=== PATIENT | female | born 1950 ===

== ENCOUNTER 2021-01-05 13:13 | Inpatient (IN) | payer OTHER ==
--- OUTSIDE RECORDS SUMMARY | 2021-01-05 13:16 | XMS REPORT | Continuity of Care Document ---
:1950 Author Organization [facility] t Address [address] [place] [address] Care Team Providers Name Role Phone Nurse, Urgent Care Attending Clinician Unavailable Johann ROMAN Attending Clinician Provider, Urgent Care Attending Clinician Unavailable Miesha OT, L Attending Clinician Unavailable Doctor Unassigned, Name Attending Clinician Unavailable LYSSA Attending Clinician Unavailable Payers Payer Name Policy Type Policy Number Effective Date Expiration Date S ource Problems Condition Condition Condition Status Onset Resolution Last Treating Co mments Source Name Details Category Date Date Treatment Clinician Date Avulsion Avulsion Problem Active Unive rs fracture fracture ity of of medial [place] medial [place] malleolus malleolus Phys ici of right of right ans tibia, tibia, closed, closed, initial initial encounter encounter Allergies, Adverse Reactions, Alerts Allergy Allergy Status Severity Reaction(s) Onset Inactive Treating Comm ents Source Name Type Date Date Clinician No Known DA Active U 2019-0 [facility] 2[facility] [place] No Known DA Active U 2018-0 [facility]ie 03-06 [place] [facility] 00[facility] Medications This patient has no known medications. Procedures This patient has no known procedures. Encounters Start End Encounter Admission Attending Care Care Encounter Source Date/Time Date/Time Type Type Clinicians Facility Department ID 2021-01-04 2021-01-04 Telephone Nurse, Hugh [facility] [id number] 00:00:00 00:00:00 Urgent Care Health [id number] Surgical [id number] Specialti [phone] es 370 Shiv 2021-01-04 2021-01-04 Telephone Johann, [facility] [id number] 00:00:00 00:00:00 [place] [id number] [place] [id number] Professio [phone] formerly [facility] [address] [facility] 2021-01-01 2021-01-01 Urgent Provider, [facility] [id number] 12:24:01 13:51:32 Care [facility] Urgent Health [id number] Care [place] [id number] Professio [phone] nal [address] 2020-12-27 2020-12-27 Ancillary Perdomo-Radames [facility] [id number] 09:02:19 10:49:26 Visit Amber kaur [place] [id number] [place] [id number] Professio [phone] formerly [facility] [address] [facility] 2020-12-27 2020-12-27 Refill Johann [facility] [id number] 00:00:00 00:00:00 [place] [id number] [place] [id number] Professio [phone] formerly [facility] [address] [facility] 2020-12-26 2020-12-26 Orders Doctor SAMUEL [id number] 00:00:00 00:00:00 Only Unassigned, HESHAM [id number] [facility] 4.2.7.2.686 [id number] [id number] 2020-08-14 2020-08-14 AppointSARAY Ravi [id number] [facility] 14:00:00 14:00:00 t; VIKRAM OMALLEY PA ity of [facility] ans 2020-07-17 2020-07-17 [facility] [id number] [facility] 14:00:00 14:00:00 t; VIKRAM OMALLEY PA Trauma ity of [facility] 2020-06-19 2020-06-19 SARAY Travis UTP [id number] Univers 14:00:00 14:00:00 t; VIKRAM OMALLEY PA ity of [facility] ans Results Test Description Test Time Test Comments Results Result Comments Source HGB HCT 2018-09-09 06:17:00 Test Item Value Reference Range Interpretation Comme nts HEMOGLOBIN (test code = HGB) 8.5 g/dL 12-16 L HEMATOCRIT (test code = HCT) 26.5 % 37-47 L - XR KNEE 1 OR 2 V [id number] 10:41:00 Patient Name: KAYLA SEGAL Unit No: [id number] EXAMS: CPT CODE: [id number] XR KNEE 1 OR 2 [place] [address] AP AND LATERAL VIEW OF THE RIGHT KNEE COMMENT:Patient is status post total right knee arthroplasty. The prosthesis appears to be in good pos ition. at 1041 Reported and signed by: Mason Vásquez MD CC: Keyona Andujar MD Technologist: JEANNIE EVANS, RT(R)Transcribed D/ (1041) t.TDER.GVG [facility] NAME: KAYLA SEGAL [address] [facility] [address] PHYS: PATAN.06 -Keyona Andujar : 1950 AGE: 68 SEX: F [place], [place] [address] LOC: Y.319 A PHONE #: [phone] EXAM DATE: 09/07/2018 STATUS: ADM IN FAX #: [phone] RAD #: D/C DT PAGE 1 Signed Report Patient Name: KAYLA SEGAL Unit No: [id number] EXAMS: CPT CODE: [id number] XR KNEE 1 OR 2 [place] [id number] <Continued> Orig Print D/T: S: 09/08/2018 (1044) [facility] NAME: KAYLA SEGAL [address] PHYS: [id number] - Keyona Andujar : 1950 AGE: 68 SEX: F [place], [place] [address] LOC: Y.319 A PHONE #: [phone] EXAM DATE: 09/07/2018 STATUS: ADM IN FAX #: [phone] RAD #: D/C DT PAGE 2 Signed ReportBASI METABOLIC [id number] 06:27:00 Test Item Value Reference Range Interpretation Comments SODIUM (test code = 143 mmol/L 136-145 N NA) POTASSIUM (test code = 4.2 mmol/L 3.5-5.1 N K) CHLORIDE (test code = 105.0 mmol/L 98-107 N CL) CARBON DIOXIDE (test 28.8 mmol/L 21-32 N code = CO2) GLUCOSE (test code = 106 mg/dL 70-110 N GLU) BLOOD UREA NITROGEN 21 mg/dL 7-18 H (test code = BUN) GLOMERULAR FILTRATION 83.8 >60 Unit o f measure: RATE (test code = GFR) mL/mi n/1.73 [id number] Range:Healthy Adults >90 mL/min/1.73 m2 For Chronic Kidney Disease: St age II Mild Decrease in GFR 60-90 St age III Moderate Decrease in GFR 30-59 Stage IV Severe Decre ase in GFR 15- 29 Stage V Kidney Failure <15 CREATININE (test code 0.82 mg/dL 0.55-1.30 N = CREAT) CALCIUM (test code = 8.8 mg/dL 8.2-10.1 N CA) GLYCOSYLATED HEMOGLOBIN (HA1C)2018-09-01 18:52:00 Test Item Value Reference Range Interpretation Comments GLYCOSYLATED 5.3 % 4.8-5.9 N Any condition t hat shortens HEMOGLOBIN (HA1C) erythocyte survival or (test code = GLYHGB) decreas esmean erythrocyte age (e.g., contreras very from acute blood los s,hemolytic anemai) will fa lsely lower HGBA1c resultsr egardless of the method used . HGBA1c results frompat ients with HbSS, HbCC and HbSc must be interpreted wit hcaution given the patho logical processes, incl uding anemia,increase d red cell turnover, trans fusion requirements, t hatadversely impact HGBA1c a s a marker of long-term glycemiccontrol . Alternative for ms of testing such as fructosaminesho uld be considered for these patients.DONE A T: [facility] [address] [place] [address] PROTHROMBIN [id number] 15:22:00 Test Item Value Reference Range Interpretation Comments PROTHROMBIN TIME 11.6 secs 10.1-12.5 N PATIENT (test code = PTP) INTERNATIONAL NORMAL 1.03 <2.0 RECOMME NDED THERAPEUTIC RATIO (test code = RANGE FOR ORAL INR) ANTICOAGULANTTR EATMENT: CONDI TION INRProphylaxis of venous thrombos is in 2.0 - 3.0 high-risk medic al or surgical patientsTreatme nt of venous thrombos is 2.0 - 3.0Prevention o f embolism 2.0 - 3.0Prevention o f recurrent embol ism, or 3.0 - 4. 5 patients with mechanical pros thetic intravascular v borrero IS PATIENT ON ANTICOAGULANTS ? YLIST ANTICOAGULANT/ANTI PLT MEDICATION : AspirinHas Lab been notified if Patient is on Heparin Drip? NOIf Yes, order CBC, OCCULT BLOOD, PT every other day NTHROMBOPLASTIN TIME [id number] 15:22:00 Test Item Value Reference Range Interpretation Comments PTT ACTIVATED (test code = APTT) 31.1 secs 24.9-37.0 N IS PATIENT ON ANTICOAGULANTS ? YLIST ANTICOAGULANT/ANTI PLT MEDICATION : AspirinHas Lab been notified if Patient is on Heparin Drip? NOIf Yes, order CBC, OCCULT BLOOD, PT every other day NCOMPREHENSIVE METABOLIC [id number] 15:03:00 Test Item Value Reference Range Interpretation Comments SODIUM (test code = 141 mmol/L 136-145 N NA) POTASSIUM (test code = 4.2 mmol/L 3.5-5.1 N K) CHLORIDE (test code = 102.0 mmol/L 98-107 N CL) CARBON DIOXIDE (test 32.7 mmol/L 21-32 H code = CO2) GLUCOSE (test code = 71 mg/dL 70-110 N GLU) BLOOD UREA NITROGEN 18 mg/dL 7-18 N (test code = BUN) GLOMERULAR FILTRATION 105.8 >60 Unit o f measure: RATE (test code = GFR) mL/mi n/1.73 [id number] Range:Healthy Adults >90 mL/min/1.73 m2 For Chronic Kidney Disease: St age II Mild Decrease in GFR 60-90 St age III Moderate Decrease in GFR 30-59 Stage IV Severe Decre ase in GFR 15- 29 Stage V Kidney Failure <15 CREATININE (test code 0.67 mg/dL 0.55-1.30 N = CREAT) TOTAL PROTEIN (test 7.5 g/dL 6.4-8.2 N code = PROT) ALBUMIN (test code = 3.7 g/dL 3.4-5.0 N ALB) GLOBULIN (test code = 3.8 g/dL 2.2-4.2 N GLOB) ALBUMIN/GLOBULIN RATIO 1.0 0.7-2.0 N (test code = A/G) CALCIUM (test code = 10.2 mg/dL 8.2-10.1 H CA) BILIRUBIN TOTAL (test 0.26 mg/dL 0.2-1.00 N code = BILT) SGOT/AST (test code = 30.0 U/L 15-37 N AST) SGPT/ALT (test code = 31.0 U/L 12-78 N Please note new ALT) normal range. ALKALINE PHOSPHATASE 119 U/L 46-116 H TOTAL (test code = ALKP) CBC W/AUTO [id number] 15:02:00 Test Item Value Reference Range Interpretation Comments WHITE BLOOD CELL (test code = WBC) 7.9 K/mm3 5.8-11.0 N RED BLOOD CELL (test code = RBC) 4.61 M/mm3 4.2-5.4 N HEMOGLOBIN (test code = HGB) 11.4 g/dL 12-16 L HEMATOCRIT (test code = HCT) 36.3 % 37-47 L MEAN CELL VOLUME (test code = MCV) 79 fL 80-98 L MEAN CELL HGB (test code = MCH) 24.7 pg 27-34 L MEAN CELL HGB CONCENTRATION (test 31.4 g/dL 30.8-34.1 N code = MCHC) RED CELL DISTRIBUTION WIDTH (test 15.3 % 11-16 N code = RDW) PLT (test code = PLT) 299 K/mm3 130-400 N MEAN PLATELET VOLUME (test code = 10.2 fL 8.9-12.1 N MPV) NEUTROPHIL % (test code = NT%) 54.1 % 45-70 N LYMPHOCYTE % (test code = LY%) 30.0 % 20-40 N MONOCYTE % (test code = MO%) 8.2 % 3-10 N EOSINOPHIL % (test code = EO%) 5.8 % 1-5 H BASOPHIL % (test code = BA%) 1.6 % 0.0-1.1 H NEUTROPHIL # (test code = NT#) 4.30 K/mm3 2.00-7.50 N LYMPHOCYTE # (test code = LY#) 2.38 K/mm3 1.50-4.00 N MONOCYTE # (test code = MO#) 0.65 K/mm3 0.2-0.8 N EOSINOPHIL # (test code = EO#) 0.46 K/mm3 0.04-0.4 H BASOPHIL # (test code = BA#) 0.13 K/mm3 0.02-0.10 H MANUAL DIFF REQUIRED (test code = NO MANUAL DIFF MDIFF) NUCLEATED RED BLOOD CELL (test 0 % 0-0 N code = NRBC) URINALYSIS [id number] 14:57:00 Test Item Value Reference Range Interpretation Comments UA COLOR (test code = COLU) YELLOW YELLOW UA APPEARANCE (test code = CLOUDY CLEAR APPU) UA GLUCOSE DIPSTICK (test code NEGATIVE NEGATIVE = DGLUU) UA BILIRUBIN DIPSTICK (test NEGATIVE NEGATIVE code = BILU) UA KETONE DIPSTICK (test code NEGATIVE mg/dL NEG = KETU) UA SPECIFIC GRAVITY (test code 1.015 1.003-1.035 = SGU) UA BLOOD DIPSTICK (test code = NEGATIVE NEGATIVE CHERRIE) UA PH DIPSTICK (test code = 7.5 >6.5 BRONWYN) UA PROTEIN DIPSTICK (test code NEGATIVE mg/dL NEG = PROU) UA UROBILINIOGEN DIPSTICK 0.2 mg/dL NORM (test code = URO) UA NITRITE DIPSTICK (test code POSITIVE NEG = MISHA) UA LEUKOCYTE ESTERASE DIPSTICK NEGATIVE NEGATIVE (test code = LEUU) UA WBC (test code = WBCU) 2-5 /HPF 0-2 A UA RBC (test code = RBCU) 2-5 /HPF 0-2 A UA EPITHELIAL CELLS (test code FEW /HPF 0-2 = EPIU) UA BACTERIA (test code = BACU) LOADED /HPF NONE A
--- NOTE | 2021-01-05 17:37 | RAD REPORT ---
EXAM DESCRIPTION: RAD - Chest Single View - 01/05/2021 5:31 pm CLINICAL HISTORY: SOB Chest pain. COMPARISON: No comparisons FINDINGS: Portable technique limits examination quality. The lungs are grossly clear. The heart is normal in size. No displaced fractures. IMPRESSION: No acute intrathoracic process suspected.
[2021-01-05 18:00] LABS: Absolute Lymphocytes (CBC) 2.1 K/uL (0.7-4.9); Hematocrit 37.6 % (36.0-45.0); Lymphocytes % 21.2 % (15.3-44.8); MPV 8.3 fL (7.6-11.3)
[2021-01-05 18:17] LABS: ALT/SGPT 37 U/L (12-78); AST/SGOT 30 U/L (15-37); Albumin 3.5 g/dL (3.4-5.0); Alkaline Phosphatase 106 U/L (45-117); BUN Blood Urea Nitrogen 19 mg/dL (7-18); Bicarbonate 34 mmol/L (21-32); Bilirubin Direct < 0.1 mg/dL (0-0.2); Bilirubin Total 0.3 mg/dL (0.2-1.0); Glucose Level 78 mg/dL (74-106); NT PRO-BNP 72 pg/mL (<125); Potassium 3.8 mmol/L (3.5-5.1); Protein, Total 7.8 g/dL (6.4-8.2); Sodium Level 140 mmol/L (136-145); Troponin (Emerg Dept Use Only) < 0.02 ng/mL (0.0-0.045)
[2021-01-05] MEDS ORDERED: FUROSEMIDE 40 MG/4 ML VIAL ONE (18:26)
[2021-01-05] MEDS ORDERED: LEVALBUTEROL 1.25 MG/3 ML NEB ONE (18:26)
--- NOTE | 2021-01-05 18:36 | RAD REPORT ---
EXAM DESCRIPTION: US - Extrem Venous W Compress Jaskaran - 01/05/2021 6:18 pm CLINICAL HISTORY: swelling, edema Bilateral leg edema and swelling. COMPARISON: No comparisons TECHNIQUE: Real-time sonographic interrogation of the left and right lower extremity deep venous sys tems was performed. FINDINGS: Normal compressibility, flow augmentation, phasic flow and spontaneous flow is identified in both the left and right lower extremity deep venous systems. IMPRESSION: No sonographic evidence of left or right lower extremity deep venous thrombosis.
--- NOTE | 2021-01-05 19:29 | EDPHYS ---
Physician Documentation [facility] Name: Zoila Solano Age: 70 yrs Sex: Female : 1950 Arrival Date: 01/05/2021 Time: 13:18 Bed 26 Private MD: ED Physician Binu Cortez HPI: 01/05 17:11 This 70 yrs old Unknown Female presents to ER via Wheelchair with complaints of Rash - jmm BLISTERS. 17:11 The patient's rash thought to be caused by an unknown cause. Onset: The jmm symptoms/episode began/occurred gradually, 10 day(s) ago. Associated signs and symptoms: Pertinent positives:. This is a 70 year old female with a history of obesity that presents to the ED with complaints of bilateral lower extremity swelling and redness beginning 10 days ago. States she now has sob, wheezing. Denies fever. . Historical: - Allergies: 15:15 No Known Allergies; kg - Home Meds: 15:15 metoprolol tartrate 50 mg Oral tab 1 tab 2 times per day [Active]; losartan 25 mg oral kg tab 1 tab once daily [Active]; Lasix 40 mg Oral tab 1 tab 2 times per day [Active]; Keflex 750 mg Oral cap 1 cap 3 times per day [Active]; - PMHx: 15:15 Hypertension; Depression; Obesity; Thyroid problem; Arthritis; kg - PSHx: 15:15 laney knee replacements; Tubal ligation; kg - Immunization history:: Adult Immunizations not up to date, Client reports receiving the 2nd dose of the Covid vaccine. - Social history:: Smoking status: Patient denies any tobacco usage or history of. ROS: 17:11 Constitutional: Negative for fever, chills, and weight loss. jmm 17:11 Respiratory: Positive for cough, wheezing. 17:11 All other systems are negative. Exam: 17:11 Constitutional: This is a well developed, well nourished patient who is awake, alert, jmm and in no acute distress. Head/Face: atraumatic. Eyes: EOMI, no conjunctival erythema appreciated ENT: Moist Mucus Membranes Neck: Trachea midline, Supple Chest/axilla: Normal chest wall appearance and motion. Cardiovascular: Regular rate and rhythm. No edema appreciated 17:11 Respiratory: the patient does not display signs of respiratory distress, Respirations: normal, Breath sounds: wheezing: is scattered. 17:11 Abdomen/GI: Inspection: obese 17:11 Musculoskeletal/extremity: ROM: intact in all extremities, edema noted bilaterally. 17:11 Skin: erythema dn induration noted, blistering appreciated. 17:11 Neuro: Orientation: is normal, Mentation: is normal, Memory: is normal. 17:11 Psych: Behavior/mood is pleasant, cooperative. Vital Signs: 15:04 BP 142 / 57; Pulse 74; Resp 20; Temp 97.3(TE); Pulse Ox 97% on R/A; Weight 131.09 kg kg (R); Height 5 ft. 4 in. (162.56 cm) (R); Pain 3/10; 18:00 BP 156 / 81; Pulse 69; Resp 20 S; Pulse Ox 100% on R/A; ca1 19:00 BP 144 / 66; Pulse 79; Resp 18; Pulse Ox 96% on R/A; Pain 0/10; fu 21:14 BP 147 / 70; Pulse 74; Resp 19; Temp 98.3; Pulse Ox 96% on R/A; Pain 0/10; fu 15:04 Body Mass Index 49.61 (131.09 kg, 162.56 cm) kg MDM: 16:53 Patient medically screened. [facility] 19:27 Data reviewed: vital signs, nurses notes. Counseling: I had a detailed discussion with kennedy the patient and/or guardian regarding: the historical points, exam findings, and any diagnostic results supporting the discharge/admit diagnosis, lab results, radiology results, the need for outpatient follow up, to return to the emergency department if symptoms worsen or persist or if there are any questions or concerns that arise at home. ED course: Labs, imaging unremarkable. Patient encouraged to double her lasix dose to 40 mb BID. Antibiotic added. Patient given strict return precautions. Patient/director card understood and agrees with the plan of care. . 19:51 ED course: I discussed the patient with the Daughter whom had concerns due to poor [facility] response of outpatient medications. I discussed the patient with Michael Senior whom accepted the patient to Dr. Josselyn ramirez. . 01/05 16:54 Order name: Basic Metabolic Panel [facility] 01/05 16:54 Order name: CBC with Diff [facility] 01/05 16:54 Order name: LFT's [facility] 01/05 16:54 Order name: Magnesium [facility] 01/05 16:54 Order name: NT PRO-BNP; Complete Time: 18:18 [facility] 01/05 16:54 Order name: PT-INR; Complete Time: 18:03 [facility] 01/05 16:54 Order name: Troponin (emerg Dept Use Only); Complete Time: 18:18 [facility] 01/05 16:54 Order name: Procalcitonin; Complete Time: 18:43 [facility] 01/05 16:54 Order name: Lactate; Complete Time: 18:18 [facility] 01/05 16:54 Order name: Blood Culture Adult (2) [facility] 01/05 16:55 Order name: Basic Metabolic Panel; Complete Time: 18:18 [facility] 01/05 16:55 Order name: CBC with Automated Diff; Complete Time: 18:03 [facility] 01/05 16:55 Order name: Liver (Hepatic) Function; Complete Time: 18:18 [facility] 01/05 16:55 Order name: Magnesium; Complete Time: 18:18 [facility] 01/05 16:54 Order name: XRAY Chest (1 view); Complete Time: 17:38 [facility] 01/05 16:54 Order name: EKG; Complete Time: 16:55 [facility] 01/05 16:54 Order name: Cardiac monitoring; Complete Time: 17:57 [facility] 01/05 16:54 Order name: EKG - Nurse/Tech; Complete Time: 17:57 [facility] 01/05 16:54 Order name: IV Saline Lock; Complete Time: 17:57 [facility] 01/05 16:54 Order name: Labs collected and sent; Complete Time: 17:57 [facility] 01/05 16:54 Order name: O2 Per Protocol; Complete Time: 17:57 [facility] 01/05 16:54 Order name: O2 Sat Monitoring; Complete Time: 17:57 [facility] 01/05 17:16 Order name: US Extremity Venous W Compression Laney; Complete Time: 18:43 [facility] Administered Medications: 18:00 Drug: Xopenex (levalbuterol) (3) 1.25 mg Route: Inhalation; ca1 18:10 Drug: Lasix (furosemide) 40 mg Route: IVP; Site: right antecubital; ca1 18:59 Follow up: Urine output 450 ml; Response: No adverse reaction ca1 Disposition: 01/06 21:12 Co-signature as Attending Physician, Binu Cortez MD I agree with the assessment and [facility] plan of care. Disposition: 01/05/21 19:57 Hospitalization ordered by Sanford Arcos for Observation. Preliminary diagnosis are Cellulitis of left lower limb, Cellulitis of right lower limb, Edema, unspecified, Failed Outpatient Therapy. - Bed requested for Telemetry/MedSurg (observation). - Status is Observation. em - Condition is Stable. - Problem is new. - Symptoms are unchanged. - Notes: Your labs and imaging studies are within normal limits. Please take prescribed antibiotic along with your previous antibiotic. Please take furosemide 40 mg twice a day. Return to the ER if you develop fever, or increased shortness of breath. Signatures: Dispatcher [employer] Binu Guzman MD MD cha Mickail, Joel, PA PA [facility] Davidson Riddle RN LAUREN em Yoly De La Torre RN LAUREN ca1 Alejandrina Peter RN RN rd1 Yohana Snow RN RN kg Corrections: (The following items were deleted from the chart) 01/05 19:28 19:28 01/05/2021 19:28 Discharged to Home. Impression: Cellulitis of right lower limb; jmm Cellulitis of left lower limb. Condition is Stable. Forms are Medication Reconciliation Form, Thank You Letter, Antibiotic Education, Prescription Opioid Use. Follow up: Private Physician; When: 2 - 3 days; Reason: Recheck today's complaints, Continuance of care, Re-evaluation by your physician. [facility] 19:51 19:28 01/05/2021 19:28 Discharged to Home. Impression: Cellulitis of right lower limb; jmm Cellulitis of left lower limb; Edema, unspecified. Condition is Stable. Forms are Medication Reconciliation Form, Thank You Letter, Antibiotic Education, Prescription Opioid Use. Follow up: Private Physician; When: 2 - 3 days; Reason: Recheck today's complaints, Continuance of care, Re-evaluation by your physician. [facility] 21:04 19:57 Hospitalization Ordered by Sanford Arcos DO for Observation. Preliminary rd1 diagnosis is Cellulitis of left lower limb; Cellulitis of right lower limb; Edema, unspecified; Failed Outpatient Therapy. Bed requested for Telemetry/MedSurg (observation). Status is Observation. Condition is Stable. Problem is new. Symptoms are unchanged. [facility] 22:05 21:04 01/05/2021 19:57 Hospitalization Ordered by Sanford Arcos DO for Observation. em Preliminary diagnosis is Cellulitis of left lower limb; Cellulitis of right lower limb; Edema, unspecified; Failed Outpatient Therapy. Bed requested for Telemetry/MedSurg (observation). Status is Observation. Condition is Stable. Problem is new. Symptoms are unchanged. rd1
--- NOTE | 2021-01-05 19:29 | ER ---
Nurse's Notes [facility] Name: Zoila Solano Age: 70 yrs Sex: Female : 1950 Arrival Date: 01/05/2021 Time: 13:18 Bed 26 Private MD: Diagnosis: Cellulitis of left lower limb;Cellulitis of right lower limb;Edema, unspecified;Failed Outpatient Therapy Presentation: 01/05 15:04 Chief complaint: Patient states: leaking fluid filled blisters on bilateral feet going kg up both legs all the way up to groin. Appeared last Friday12/27/20. Pt stated, " I called my Dr. they told me to increase my lasix to BID and started me on Kelfex TID. I started the Kelfex Friday.". Coronavirus screen: Client denies travel out of the [place] in the last 14 days. At this time, unable to obtain information related to travel outside the [place] At this time, the client does not indicate any symptoms associated with coronavirus-19. Ebola Screen: Patient negative for fever greater than or equal to 101.5 degrees Fahrenheit, and additional compatible Ebola Virus Disease symptoms Patient denies exposure to infectious person. Patient denies travel to an Ebola-affected area in the 21 days before illness onset. No symptoms or risks identified at this time. Initial Sepsis Screen: Does the patient meet any 2 criteria? No. Patient's initial sepsis screen is negative. Does the patient have a suspected source of infection? No. Patient's initial sepsis screen is negative. Risk Assessment: Do you want to hurt yourself or someone else? Patient reports no desire to harm self or others. Onset of symptoms was December 27, 2020. 15:04 Method Of Arrival: Wheelchair kg 15:04 Acuity: JYOTI 4 kg 17:14 Acuity: JYOTI 3 iw Triage Assessment: 15:15 General: Appears in no apparent distress. Behavior is calm, cooperative, appropriate kg for age, quiet. Pain: Complains of pain in right leg and left leg Pain does not radiate. Pain currently is 3 out of 10 on a pain scale. Quality of pain is described as stinging. Historical: - Allergies: 15:15 No Known Allergies; kg - Home Meds: 15:15 metoprolol tartrate 50 mg Oral tab 1 tab 2 times per day [Active]; losartan 25 mg oral kg tab 1 tab once daily [Active]; Lasix 40 mg Oral tab 1 tab 2 times per day [Active]; Keflex 750 mg Oral cap 1 cap 3 times per day [Active]; - PMHx: 15:15 Hypertension; Depression; Obesity; Thyroid problem; Arthritis; kg - PSHx: 15:15 laney knee replacements; Tubal ligation; kg - Immunization history:: Adult Immunizations not up to date, Client reports receiving the 2nd dose of the Covid vaccine. - Social history:: Smoking status: Patient denies any tobacco usage or history of. Screenin:18 Abuse screen: Denies threats or abuse. Denies injuries from another. Nutritional kg screening: No deficits noted. Tuberculosis screening: No symptoms or risk factors identified. Fall Risk Fall in past 12 months (25 points). No secondary diagnosis (0 pts). No IV (0 pts). Ambulatory Aid- Crutches/Cane/Walker (15 pts). Gait- Weak (10 pts.). Mental Status- Oriented to own ability (0 pts). Total Aburto Fall Scale indicates Low Risk Score (25-44 pts). Fall prevention measures have been instituted. Side Rails Up X 2 Placed close to Nursing Station Frequent Obs/Assesments occuring Family Present and informed to notify staff if they need to leave bedside As available Patient and Family Educated on Fall Prevention Program and strategies. Assessment: 16:35 General: Appears in no apparent distress. uncomfortable, obese, Behavior is calm, ca1 cooperative, appropriate for age. Pain: Denies pain. Neuro: Level of Consciousness is awake, alert, obeys commands, Oriented to person, place, time, situation. Cardiovascular: Heart tones S1 S2 present Capillary refill < 3 seconds Patient's skin is warm and dry. Respiratory: Airway is patent Respiratory effort is even, unlabored, Respiratory pattern is regular, symmetrical, Breath sounds are clear bilaterally. GI: Abdomen is round non-distended, Bowel sounds present X 4 quads. Abd is soft and non tender X 4 quads. : No signs and/or symptoms were reported regarding the genitourinary system. Derm: Skin is intact, has blisters on laney feet, laney legs, laney thighs Skin is pink, warm \\T\\ dry. Derm: Derm: Musculoskeletal: Circulation, motion, and sensation intact. Capillary refill < 3 seconds, Swelling present in right leg and left leg. 17:30 Reassessment: Patient appears in no apparent distress at this time. Patient and/or ca1 family updated on plan of care and expected duration. Pain level reassessed. Patient is alert, oriented x 3, equal unlabored respirations, skin warm/dry/pink. 18:25 Reassessment: Patient appears in no apparent distress at this time. Patient and/or ca1 family updated on plan of care and expected duration. Pain level reassessed. Patient is alert, oriented x 3, equal unlabored respirations, skin warm/dry/pink. 19:00 Reassessment: Patient appears in no apparent distress at this time. Patient and/or fu family updated on plan of care and expected duration. Pain level reassessed. Patient is alert, oriented x 3, equal unlabored respirations, skin warm/dry/pink. assisted to use bedpan. 20:00 Reassessment: patient voided in bedpan with assist. fu 21:00 Reassessment: Patient and/or family updated on plan of care and expected duration. Pain fu level reassessed. Patient is alert, oriented x 3, equal unlabored respirations, skin warm/dry/pink. linens chamgd. Vital Signs: 15:04 BP 142 / 57; Pulse 74; Resp 20; Temp 97.3(TE); Pulse Ox 97% on R/A; Weight 131.09 kg kg (R); Height 5 ft. 4 in. (162.56 cm) (R); Pain 3/10; 18:00 BP 156 / 81; Pulse 69; Resp 20 S; Pulse Ox 100% on R/A; ca1 19:00 BP 144 / 66; Pulse 79; Resp 18; Pulse Ox 96% on R/A; Pain 0/10; fu 21:14 BP 147 / 70; Pulse 74; Resp 19; Temp 98.3; Pulse Ox 96% on R/A; Pain 0/10; fu 15:04 Body Mass Index 49.61 (131.09 kg, 162.56 cm) kg ED Course: 13:18 Patient arrived in ED. wm 15:07 Triage completed. kg 15:19 Arm band placed on right wrist. kg 15:19 Patient has correct armband on for positive identification. kg 16:27 Jonathan Vang PA is PHCP. [facility] 16:27 Binu Cortez MD is Attending Physician. jmm 16:32 Yoly De La Torre, RN is Primary Nurse. ca1 16:35 Patient has correct armband on for positive identification. Placed in gown. Bed in low ca1 position. Call light in reach. Side rails up X2. vehicle monitor technician on. Pulse ox on. NIBP on. Warm blanket given. 17:31 XRAY Chest (1 view) In Process Unspecified. EDMS 17:44 Initial lab(s) drawn, by me, sent to lab. Inserted saline lock: 22 gauge in right ca1 antecubital area, using aseptic technique. Blood collected. 18:18 US Extremity Venous W Compression Laney In Process Unspecified. EDMS 19:00 Report given to Sukhwinder Zarate. ca1 19:54 Sanford Arcos DO is Hospitalizing Provider. [facility] 22:04 No provider procedures requiring assistance completed. Patient admitted, IV remains in em place. Administered Medications: 18:00 Drug: Xopenex (levalbuterol) (3) 1.25 mg Route: Inhalation; ca1 18:10 Drug: Lasix (furosemide) 40 mg Route: IVP; Site: right antecubital; ca1 18:59 Follow up: Urine output 450 ml; Response: No adverse reaction ca1 Output: 18:59 Urine: 450ml; Total: 450ml. ca1 19:05 Urine: 400ml (Voided); Total: 850ml. ca1 Outcome: 19:28 Discharge ordered by MD. jm 19:57 Decision to Hospitalize by Provider. [facility] 22:04 Admitted to Med/surg accompanied by nurse, family with patient, via stretcher, room 204.em 22:04 Condition: stable 22:04 Instructed on the need for admit, Demonstrated understanding of instructions. 22:05 Patient left the ED. em Signatures: Dispatcher [employer] EDWA Jonathan Vang PA PA Davidson Salazar RN RN Nataly Husain RN RN Elliot Chirinos RN RN Yoly De La Torre RN RN [facility] Yohana Snow RN RN Taylor Vargas Corrections: (The following items were deleted from the chart) 15:18 15:04 Chief complaint: Patient states: leaking fluid filled blisters on bilateral feet kg going up both legs all the way up to groin. Appeared last Friday12/27/20 kg : 21:35 Patient has correct armband on for positive identification. Placed in gown. Bed ca1 in low position. Call light in reach. Side rails up X2. ca1 21:35 vehicle monitor technician on. Pulse ox on. NIBP on. ca1 ca1 21:35 Warm blanket given. ca1 ca1
--- NOTE | 2021-01-05 20:49 | P.HP ---
Certification for Inpatient Patient admitted to: Observation With expected LOS: <2 Midnights Patient will require the following post-hospital care: None Practitioner: I am a practitioner with admitting privileges, knowledge of patient current condition, hospital course, and medical plan of care. Services: Services provided to patient in accordance with Admission requirements found in Title 42 Section 412.3 of the Code of Federal Regulations Patient History Date of Service: 01/05/21 Primary Care Provider: Dr. Byrne Reason for admission: Dyspnea, pedal edema History of Present Illness: 70-year-old female with history of hypertension, depression, hypothyroidism presents emergency department for lower extremity edema, erythema. Patient reports over the course of the last couple of months she has had increased edema to the lower extremities, recently saw her charge operator for the 1st time Dr. Wills, reports that she is supposed to have an echocardiogram but did not receive this. Patient was prescribed for this med 40 mg p.o. daily at that time, was also prescribed Keflex for the erythema of the lower extremities. Patient reports swelling is not improved, no increase in urine output, presented the emergency department for further evaluation. Patient value added in the emergency department, labs significant unremarkable, WBC within normal limits, pro calcitonin negative, DVT study negative bilaterally, patient with severe bilateral lower extremity edema with blistering, some mild erythema noted bilaterally. This appears to be related to significant edema rather than a cellulitis. Suspect underlying CHF. Will admit for further evaluation and management. - Past Medical/Surgical History -: Hypertension -: Hypothyroidism -: Obesity -: Depression -: Bilateral knees -: Tubal ligation Psychosocial/ Personal History: Lives alone, unemployed - Family History Family History: Reviewed- Non-Contributory - Social History Smoking Status: Never smoker Alcohol use: No CD- Drugs: No Caffeine use: Yes Place of Residence: Home Review of Systems 10-point ROS is otherwise unremarkable Respiratory: Shortness of Breath Cardiovascular: Edema, As per HPI Physical Examination - Physical Exam General: Alert, In no apparent distress, Oriented x3, Obese HEENT: Atraumatic, PERRLA, Mucous membr. moist/pink Neck: Supple, 2+ carotid pulse no bruit, No LAD Respiratory: Clear to auscultation bilaterally, Normal air movement Cardiovascular: Regular rate/rhythm, Normal S1 S2, Edema (3+ pitting edema bilateral lower extremities to the level of the thigh with blisters/ulcerations) Gastrointestinal: Normal bowel sounds, No tenderness Musculoskeletal: No tenderness Integumentary: No rashes Neurological: Normal speech, Normal strength at 5/5 x4 extr, Normal tone, Normal affect - Studies Laboratory Data (last 24 hrs) 01/05/21 17:44: PT 11.5, INR 1.00 01/05/21 17:44: WBC 10.10, Hgb 12.1, Hct 37.6, Plt Count 256 01/05/21 17:44: Sodium 140, Potassium 3.8, BUN 19 H, Creatinine 0.76, Glucose 78, Magnesium 2.0, Total Bilirubin 0.3, AST 30, ALT 37, Alkaline Phosphatase 106 Assessment and Plan - Plan Assessment Dyspnea, edema/erythema of the lower extremities with blistering/ulcerations suspect underlying CHF Hypertension Hypothyroidism Depression Plan Dyspnea, edema/erythema of the lower extremities with blistering/ulcerations suspect underlying CHF: Continue with IV diuresis with Lasix 40 mg t.i.d., patient was scheduled for outpatient echocardiogram but did not receive this. Will consult cardiology as echocardiogram not likely to be available this weekend. 1500 CC per day fluid restriction, will elevate lower extremities this evening, pro calcitonin/white blood cell count normal doubt infection at this time. Will recheck with morning labs. DVT prophylaxis Lovenox 40 mg subcuta neous once daily. DVT study negative bilaterally Hypertension: Obtain and continue home medications, adjust as necessary Hypothyroidism: Obtain and continue home medications Depression: Continue home meds Discharge Plan: Home Plan to discharge in: 24 Hours - Advance Directives Does patient have a Living Will: No Does patient have a Durable POA for Healthcare: No - Code Status/Comfort Care Code Status Assessed: Yes (Full code) Critical Care: No Time Spent Managing Pts Care (In Minutes): 55
[2021-01-05 22:19] VITALS: O2SAT 96
[2021-01-05] MEDS ORDERED: ONDANSETRON 4 MG/2 ML VIAL IV PRN (22:35)
[2021-01-06] MEDS: FUROSEMIDE 40 MG/4 ML VIAL IV SCH ×3 (00:31→18:35)
[2021-01-06] MEDS: ACETAMINOPHEN 500 MG TAB PO PRN (00:31)
[2021-01-06] MEDS ORDERED: CELECOXIB 100 MG CAPSULE PO PRN (04:53)
[2021-01-06] MEDS: LEVOTHYROXINE SOD 0.025 MG TAB PO SCH (05:40)
[2021-01-06] MEDS: LEVOTHYROXINE SOD 0.112 MG TAB PO SCH (05:40)
--- NOTE | 2021-01-06 05:59 | P.PN ---
Subjective Date of Service: 01/06/21 Primary Care Provider: Dr. Byrne Chief Complaint: Dyspnea, pedal edema Subjective: Improving Physical Examination - Vital Signs Temperature: 97.5 F Blood Pressure: 113/57 Pulse: 80 Respirations: 18 Pulse Ox (%): 96 - Studies Laboratory Data (last 24 hrs) 01/05/21 17:44: PT 11.5, INR 1.00 01/05/21 17:44: WBC 10.10, Hgb 12.1, Hct 37.6, Plt Count 256 01/05/21 17:44: Sodium 140, Potassium 3.8, BUN 19 H, Creatinine 0.76, Glucose 78, Magnesium 2.0, Total Bilirubin 0.3, AST 30, ALT 37, Alkaline Phosphatase 106 Assessment & Plan Discharge Plan: Home Plan to discharge in: 24 Hours Physician Review Additional Text: Physical Exam: General: Alert, In no apparent distress, Oriented x3, Obese HEENT: Atraumatic, PERRLA, Mucous membr. moist/pink Neck: Supple, 2+ carotid pulse no bruit, No LAD Respiratory: Clear to auscultation bilaterally, Normal air movement Cardiovascular: Regular rate/rhythm, Normal S1 S2, edema to the lower extremities noted. Some improvement noted. Some ulcerations as well. Around 2+ pitting edema. Gastrointestinal: Normal bowel sounds, No tenderness Musculoskeletal: No tenderness Integumentary: No rashes, 2+ pitting edema to the lower extremities with some blisters Neurological: Normal speech, Normal strength at 5/5 x4 extr, Normal tone, Normal affect Impression: Dyspnea, edema/erythema of the lower extremities with blistering/ulcerations suspect underlying acute on chronic diastolic CHF Hypertension Hypothyroidism Depression Morbid obesity, BMI greater than 50 Plan: Dyspnea, edema/erythema of the lower extremities with blistering/ulcerations suspect underlying acute on chronic diastolic CHF: Continue with IV diuresis. Continue Lasix 40 mg IV 3 times a day. Continue 1500 cc/day fluid restriction. Spoke with cardiology. Cardiology agrees with plan of care. Elevate legs when sitting or lying. Can be discharged home as early as tomorrow with outpatient echocardiogram to be done as an outpatient. Order physical therapy and Occupational Therapy. Will discontinue Charlton catheter once able to ambulate well. Anticipate likely improvement and likely discharge in the next 24 to 48 hours. Hypertension: Continue with losartan 100 mg daily and metoprolol 50 mg 1 pill twice daily. Parameters in place. Hypothyroidism: Continue with levothyroxine 137 mcg daily Depression: Continue with her medication including Abilify 5 mg daily, bupropion XL 300 mg daily, and Zoloft 200 mg daily. Morbid obesity, BMI greater than 50: Continue lifestyle modification education. Code Status: Full code DVT Prophylaxis: Lovenox Advanced Care Planning: Home at [place]. Patient plans to move to [place] with daughter. Time Spent Managing Pts Care (In Minutes): 55
--- NOTE | 2021-01-06 06:57 | EKG ---
Test Date: 2021-01-05 Test Time: 17:30:06 Drug Safety Physician: RIDDHI MEASUREMENT RESULTS: Intervals: Rate: 68 OH: 152 QRSD: 92 QT: 404 QTc: 429 [place]: P: 65 OH: 152 QRS: 57 T: 6 INTERPRETIVE STATEMENTS: Normal sinus rhythm ST abnormality, possible digitalis effect Abnormal ECG No previous ECG available for comparison Electronically Signed On 01-06-21 06:56:20 CDT by Alec Reilly
[2021-01-06 07:07] LABS: Absolute Lymphocytes (CBC) 1.6 K/uL (0.7-4.9); Hematocrit 37.3 % (36.0-45.0); Lymphocytes % 18.9 % (15.3-44.8); MPV 8.4 fL (7.6-11.3); RBC Red Blood Cell Count 4.47 M/uL (3.86-4.86)
[2021-01-06 07:35] LABS: Albumin 3.4 g/dL (3.4-5.0); Bilirubin Total 0.3 mg/dL (0.2-1.0); C-Reactive Protein 9.61 mg/L (<3.00); Magnesium 1.9 mg/dL (1.8-2.4); Potassium 3.6 mmol/L (3.5-5.1); Protein, Total 7.3 g/dL (6.4-8.2)
[2021-01-06 07:44] LABS: Thyroid Stimulating Hormone 5.97 uIU/mL (0.360-3.740)
[2021-01-06] MEDS ORDERED: POTASSIUM CL SA 10 MEQ TAB PO ONE (08:00)
[2021-01-06] MEDS ORDERED: HOME MED 1 EA UNK (Levothyroxine Sodium [Levothyroxine] 137 MCG Capsule) PO SCH (09:00)
[2021-01-06] MEDS: MULTIVITAMIN TAB PO SCH (09:00)
[2021-01-06] MEDS: ENOXAPARIN 40 MG/0.4 ML SQ SCH (09:00)
[2021-01-06] MEDS ORDERED: HOME MED 1 EA UNK (Calcium Carbonate [Calcium] 600 MG Tablet) PO SCH (09:00)
[2021-01-06] MEDS: BUPROPION HCL XL 150 MG TAB PO SCH (10:51)
[2021-01-06] MEDS: VITAMIN D 1000 UNIT TAB PO SCH (10:51)
[2021-01-06] MEDS: CRANBERRY FRUIT EXTRACT 200 MG CAP PO SCH (10:51)
[2021-01-06] MEDS: CALCIUM CARBONATE 500 MG TAB PO SCH ×2 (10:52→20:04)
[2021-01-06] MEDS: SERTRALINE HCL 100 MG TAB PO SCH (10:52)
[2021-01-06] MEDS: LOSARTAN POTASSIUM 50 MG TABLET PO SCH (10:53)
[2021-01-06] MEDS: METOPROLOL TAR 50 MG TAB PO SCH ×2 (10:53→20:04)
[2021-01-06] MEDS: ARIPiprazole 5 MG TAB PO SCH (10:53)
[2021-01-06] MEDS: ASPIRIN EC 81 MG TAB PO SCH (10:53)
[2021-01-06] MEDS: DOCOSAHEXANOIC AC/EPA 1000 MG PO SCH ×2 (10:53→20:04)
[2021-01-06 19:07] LABS: Urine Appearance CLEAR (Clear); Urine Bilirubin NEGATIVE (Negative); Urine Blood 2+ (Negative); Urine Color YELLOW (Yellow); Urine Glucose NEGATIVE (Negative); Urine Protein NEGATIVE (Negative); Urine Urobilinogen 0.2 mg/dL (0.2-1.0); Urine pH 5.5 (5.0-7.0)
[2021-01-06 19:08] LABS: Urine Microscopic Reflex ORDER UMIC
[2021-01-06 19:31] LABS: Urine Bacteria <20 /HPF (<20); Urine RBC <5 /HPF (NONE SEEN)
[2021-01-07] MEDS: FUROSEMIDE 40 MG/4 ML VIAL IV SCH (00:38)
[2021-01-07] MEDS: ACETAMINOPHEN 500 MG TAB PO PRN (03:56)
--- NOTE | 2021-01-07 05:57 | P.DS ---
Admission Date: 01/06/21 Discharge Date: 01/07/21 Primary Care Provider: Dr. Byrne Disposition: ROUTINE DISCHARGE Discharge Condition: GOOD Reason for Admission: Dyspnea, pedal edema Consultations: Cardiology-Dr. Reilly Procedures: CXR: COMPARISON: No comparisons FINDINGS: Portable technique limits examination quality. The lungs are grossly clear. The heart is normal in size. No displaced fractures. IMPRESSION: No acute intrathoracic process suspected. Venous doppler: FINDINGS: Normal compressibility, flow augmentation, phasic flow and spontaneous flow is identified in both the left and right lower extremity deep venous systems. IMPRESSION: No sonographic evidence of left or right lower extremity deep venous thrombosis. Medical Problem list: Dyspnea, edema/erythema of the lower extremities with blistering/ulcerations secondary to acute on chronic diastolic CHF Hypertension Hypothyroidism Depression Hyperlipidemia Morbid obesity, BMI greater than 50 Brief History of Present Illness: 70-year-old female with history of hypertension, depression, hypothyroidism presents emergency department for lower extremity edema, erythema. Patient reports over the course of the last couple of months she has had increased edema to the lower extremities, recently saw her supervisor quality control for the 1st time Dr. Wills, reports that she is supposed to have an echocardiogram but did not receive this. Patient was prescribed for this med 40 mg p.o. daily at that time, was also prescribed Keflex for the erythema of the lower extremities. Patient reports swelling is not improved, no increase in urine output, presented the emergency department for further evaluation. Patient value added in the emergency department, labs significant unremarkable, WBC within normal limits, pro calcitonin negative, DVT study negative bilaterally, patient with severe bilateral lower extremity edema with blistering, some mild erythema noted bilaterally. This appears to be related to significant edema rather than a cellulitis. Suspect underlying CHF. Will admit for further evaluation and management. Hospital Course: Patient presented with dyspnea, edema to the lower extremities with some blisters and ulcerations. Patient found to have acute on chronic diastolic CHF. The patient was admitted for diuresis. Patient was seen and evaluated by cardiology. Adjustments in medication were required. Patient previously on Lasix 40 mg daily and hydrochlorothiazide 25 mg daily. At discharge no significant edema or shortness of breath noted. Patient has responded appropriately with IV diuresis. At discharge the patient will continue with the 1500 cc/day fluid restriction and low-salt diet. Recommend to monitor her weight daily. If her weight increases by more than 5 pounds she is to contact her PCP or cardiology for further recommendation. At discharge she will continue with Lasix 40 mg 1 pill twice daily. Hydrochlorothiazide has been discontinued. Note Lasix has been increased to twice daily. Further adjustment in medication can be done by her PCP or cardiology. Recommend to recheck labBMP in 1 to 2 weeks to monitor her progress. Recommend follow-up with cardiology as an outpatient to further address. Recommend echocardiogram to be done as an outpatient. Patient plans to move with her daughter in [facility]. It will be important for the patient to follow-up with a supervisor quality control there and establish care with a PCP to continue treatment. Education on CHF will be provided. Recommend to elevate legs when sitting or lying. Patient with hypertension. Blood pressure stable. At discharge she will continue with losartan 100 mg daily and metoprolol 50 mg 1 pill twice daily. Patient will also continue with aspirin 81 mg daily. Recommend to maintain blood pressure less than 130/80. Further adjustment can be done by her PCP. Patient with hyperlipidemia. At discharge patient will continue with fish oil 1000 mg 1 pill twice daily. Recommend to recheck fasting lipid panel in 6 to 8 weeks to monitor her progress. Patient with hypothyroidism. At discharge patient will continue with levothyroxine 137 mcg daily. Recommend to recheck TSH and free T4 in 6 to 8 weeks to monitor her progress. Patient with depression and anxiety. At discharge she will continue with her medications of Abilify 5 mg daily, Wellbutrin XL 300 mg daily, and Zoloft 200 mg daily. Recommend follow-up with her PCP or psychiatry to further monitor and adjust medication. Patient will continue with her other medications including multivitamin daily, Os-Julio twice daily, and vitamin D3. Patient takes Celebrex 200 mg daily as needed for pain. Recommend to limit use especially in light of her CHF and hypertension. Patient may take Tylenol [id number] as needed for pain. Patient with morbid obesity. Lifestyle modification education provided. Vital Signs/Physical Exam: Temp Pulse Resp BP Pulse Ox 97.2 F 86 18 139/75 93 01/07/21 04:00 01/07/21 04:00 01/07/21 04:00 01/07/21 04:00 01/07/21 04:00 General: Alert, In no apparent distress, Oriented x3, Cooperative HEENT: Atraumatic Neck: Supple Respiratory: Clear to auscultation bilaterally, Normal air movement Cardiovascular: Normal pulses, Regular rate/rhythm Gastrointestinal: Normal bowel sounds, Soft and benign, Non-distended, No tenderness, No masses, No rebound, No guarding Musculoskeletal: Other (Edema to the lower extremities significantly improved. Mild blisters noted to some areas. Otherwise significant improvement noted.) Integumentary: Other (As above. No erythema to indicate cellulitis.) Neurological: Normal speech, Normal strength at 5/5 x4 extr, Normal tone, Normal affect Laboratory Data at Discharge: WBC 8.50 K/uL (4.3-10.9) D 01/06/21 06:46 Hgb 11.9 g/dL (12.0-15.0) L 01/06/21 06:46 Hct 37.3 % (36.0-45.0) 01/06/21 06:46 Plt Count 266 K/uL (152-406) 01/06/21 06:46 PT 11.5 SECONDS (9.5-12.5) 01/05/21 17:44 INR 1.00 01/05/21 17:44 Sodium 140 mmol/L (136-145) 01/06/21 06:46 Potassium 3.6 mmol/L (3.5-5.1) 01/06/21 06:46 BUN 20 mg/dL (7-18) H 01/06/21 06:46 Creatinine 0.81 mg/dL (0.55-1.3) 01/06/21 06:46 Glucose 96 mg/dL (74-106) 01/06/21 06:46 Magnesium 1.9 mg/dL (1.8-2.4) 01/06/21 06:46 Total Bilirubin 0.3 mg/dL (0.2-1.0) 01/06/21 06:46 AST 25 U/L (15-37) 01/06/21 06:46 ALT 34 U/L (12-78) 01/06/21 06:46 Alkaline Phosphatase 104 U/L (45-117) 01/06/21 06:46 Triglycerides 40 mg/dL (<150) 01/06/21 06:46 Cholesterol 198 mg/dL (<200) 01/06/21 06:46 HDL Cholesterol 80 mg/dL (40-60) H 01/06/21 06:46 Cholesterol/HDL Ratio 2.48 01/06/21 06:46 Home Medications: ARIPiprazole [Abilify*] 5 mg PO DAILY 01/05/21 Aspirin [Aspirin EC] 81 mg PO DAILY 01/05/21 Bupropion *Xl* [Wellbutrin XL*] 300 mg PO DAILY 01/05/21 Calcium Carbonate [Calcium] 600 mg PO BID 01/05/21 Celecoxib 200 mg PO DAILY PRN 01/05/21 Cholecalciferol (Vitamin D3) [Vitamin D3] 1 cap PO DAILY 01/05/21 Cranberry 400 mg PO DAILY 01/05/21 Levothyroxine Sodium [Levothyroxine] 137 mcg PO DAILY 01/05/21 Losartan Potassium [Cozaar] 100 mg PO DAILY 01/05/21 Metoprolol Tartrate [Lopressor] 50 mg PO BID 01/05/21 Multivitamin 1 tab PO DAILY 01/05/21 [place]-3/Dha/Epa/Fish Oil [Fish Oil 1,000 mg Softgel] 1,000 mg PO BID 01/05/21 Sertraline [Zoloft*] 200 mg PO DAILY 01/05/21 Furosemide [Lasix*] 40 mg PO BIDL #60 tab 01/07/21 New Medications: Furosemide [Lasix*] 40 mg PO BIDL #60 tab Physician Discharge Instructions: Patient presented with dyspnea, edema to the lower extremities with some blisters and ulcerations. Patient found to have acute on chronic diastolic CHF. The patient was admitted for diuresis. Patient was seen and evaluated by cardiology. Adjustments in medication were required. Patient previously on Lasix 40 mg daily and hydrochlorothiazide 25 mg daily. At discharge no significant edema or shortness of breath noted. Patient has responded appropriately with IV diuresis. At discharge the patient will continue with the 1500 cc/day fluid restriction and low-salt diet. Recommend to monitor her weight daily. If her weight increases by more than 5 pounds she is to contact her PCP or cardiology for further recommendation. At discharge she will continue with Lasix 40 mg 1 pill twice daily. Hydrochlorothiazide has been discontinued. Note Lasix has been increased to twice daily. Further adjustment in medication can be done by her PCP or cardiology. Recommend to recheck labBMP in 1 to 2 weeks to monitor her progress. Recommend follow-up with cardiology as an outpatient to further address. Recommend echocardiogram to be done as an outpatient. Patient plans to move with her daughter in [facility]. It will be important for the patient to follow-up with a supervisor quality control there and establish care with a PCP to continue treatment. Education on CHF will be provided. Recommend to elevate legs when sitting or lying. Patient with hypertension. Blood pressure stable. At discharge she will continue with losartan 100 mg daily and metoprolol 50 mg 1 pill twice daily. Patient will also continue with aspirin 81 mg daily. Recommend to maintain blood pressure less than 130/80. Further adjustment can be done by her PCP. Patient with hyperlipidemia. At discharge patient will continue with fish oil 1000 mg 1 pill twice daily. Recommend to recheck fasting lipid panel in 6 to 8 weeks to monitor her progress. Patient with hypothyroidism. At discharge patient will continue with levothyr oxine 137 mcg daily. Recommend to recheck TSH and free T4 in 6 to 8 weeks to monitor her progress. Patient with depression and anxiety. At discharge she will continue with her medications of Abilify 5 mg daily, Wellbutrin XL 300 mg daily, and Zoloft 200 mg daily. Recommend follow-up with her PCP or psychiatry to further monitor and adjust medication. Patient will continue with her other medications including multivitamin daily, Os-Julio twice daily, and vitamin D3. Patient takes Celebrex 200 mg daily as needed for pain. Recommend to limit use especially in light of her CHF and hypertension. Patient may take Tylenol [id number] as needed for pain. Patient with morbid obesity. Lifestyle modification education provided. Diet: AHA (1500 cc/day fluid restriction) Activity: Fall precautions Followup: NONE,NONE [Primary Care Provider] - Time spent managing pt's care (in minutes): 55
[2021-01-07] MEDS: LEVOTHYROXINE SOD 0.112 MG TAB PO SCH (06:22)
[2021-01-07] MEDS: LEVOTHYROXINE SOD 0.025 MG TAB PO SCH (06:22)
[2021-01-07 06:31] VITALS: BMI 48.4
[2021-01-07 06:34] LABS: Absolute Lymphocytes (CBC) 1.7 K/uL (0.7-4.9); Basophils % 0.4 % (0-1.3); Hematocrit 39.6 % (36.0-45.0); Lymphocytes % 18.7 % (15.3-44.8); MPV 8.4 fL (7.6-11.3); RBC Red Blood Cell Count 4.75 M/uL (3.86-4.86)
[2021-01-07 06:51] LABS: Albumin 3.4 g/dL (3.4-5.0); Bilirubin Total 0.3 mg/dL (0.2-1.0); Magnesium 1.9 mg/dL (1.8-2.4); Potassium 3.4 mmol/L (3.5-5.1); Protein, Total 8.1 g/dL (6.4-8.2)
[2021-01-07] MEDS: CRANBERRY FRUIT EXTRACT 200 MG CAP PO SCH (08:54)
[2021-01-07] MEDS: VITAMIN D 1000 UNIT TAB PO SCH (08:55)
[2021-01-07] MEDS: DOCOSAHEXANOIC AC/EPA 1000 MG PO SCH (08:55)
[2021-01-07] MEDS: ARIPiprazole 5 MG TAB PO SCH (08:55)
[2021-01-07] MEDS: SERTRALINE HCL 100 MG TAB PO SCH (08:55)
[2021-01-07] MEDS: ASPIRIN EC 81 MG TAB PO SCH (08:55)
[2021-01-07] MEDS: CALCIUM CARBONATE 500 MG TAB PO SCH (08:56)
[2021-01-07] MEDS: METOPROLOL TAR 50 MG TAB PO SCH (08:56)
[2021-01-07] MEDS: LOSARTAN POTASSIUM 50 MG TABLET PO SCH (08:56)
[2021-01-07] MEDS: BUPROPION HCL XL 150 MG TAB PO SCH (08:56)
[2021-01-07] MEDS: MULTIVITAMIN TAB PO SCH (08:58)
[2021-01-07 08:59] VITALS: BP 106/58
[2021-01-07] MEDS: ENOXAPARIN 40 MG/0.4 ML SQ SCH (08:59)
[2021-01-07] MEDS ORDERED: FUROSEMIDE 40 MG TABLET PO SCH (09:00)
[2021-01-07] MEDS ORDERED: POTASSIUM CL SA 10 MEQ TAB PO ONE (09:00)
[2021-01-07 09:56] VITALS: TEMP 97.7
--- NOTE | 2021-01-09 11:17 | CON ---
Date of Consultation: 01/05/2021 Reason For Consultation: Shortness of breath and edema. History Of Present Illness: The patient is a 70-year-old woman who was moving to [place] in the next da y or 2, came in with a rather sudden onset edema and shortness of breath, had a normal chest x-ray, n ormal labs, normal venous Doppler. Symptoms have resolved with low-dose IV Lasix. Past Medical History: She has a history of bipolar disorder, depression, obesity, hypertension, hypo thyroidism, chronic diastolic congestive heart failure. Medications: She takes her medications at home include hydrochlorothiazide, Zoloft, Abilify, Wellbut rin, Lasix, Synthroid, Lopressor, and Cozaar. Allergies: NONE. Review of Systems: Negative. Social History: Negative. Family History: Negative. Physical Examination: General: A very pleasant, in no acute distress. Vital Signs: Stable. She was afebrile. HEENT: Negative. Neck: Supple without any bruit, lymphadenopathy, JVD, or thyromegaly. Chest: Clear to auscultation and percussion. Cardiac: Revealed a regular rhythm and rate with an S4 gallops. No murmurs or rubs. Abdomen: Obese, but benign. Extremities: Revealed 1+ edema. Neurologic: She was nonfocal. Skin: Dry and intact. Her pulses were present distally bilaterally. Impression And Plan: 1.Acute on chronic diastolic congestive heart failure, resolved with the Lasix. The patient is movi ng to [place]. I think she needs to have an echocardiogram and an MPI as an outpatient whoever she sees in [place]. I will continue her present regimen. I will discontinue hydrochlorothiazide and maybe inc rease her Lasix dose. She is already on a beta-nakul. I would continue that to watch salt intake and fluid restriction. Her other problems include bipolar disorder, on Abilify. 2.Hypothyroidism, on Synthroid. 3.Hypertension, well controlled, on Cozaar and Lopressor. I am comfortable with Ms. Solano going home whenever it is okay with Dr. Arcos. She will follow up in [place] with a primary soap mixer and a [facility] physician. CADENCE/HAJA Voice ID: [id number] Report ID: [id number]
== END 2021-01-07 10:26 | disposition home or self-care (01) | DRG 292 ==
LOC: ER 13:13 → ERHOLD 20:43 → 2ND 21:52 → OBSVTOIN 01-06 16:43
PROVIDERS: ADMIT Family Medicine; ATTEND Family Medicine
DX: I11.0 Hypertensive heart disease with heart failure (principal); Z68.42 Body mass index [BMI] 45.0-49.9, adult; L97.929 Non-pressure chronic ulcer of unspecified part of left lower leg with unspecified severity; L97.919 Non-pressure chronic ulcer of unspecified part of right lower leg with unspecified severity; I50.33 Acute on chronic diastolic (congestive) heart failure; E03.9 Hypothyroidism, unspecified; F32.9 Major depressive disorder, single episode, unspecified; E78.5 Hyperlipidemia, unspecified; E66.01 Morbid (severe) obesity due to excess calories
CPT/HCPCS: 36415; 71045; 80048; 80053; 80061; 80076; 81003; 81015; 83605; 83735; 83880; 84145; 84439; 84443; 84484; 85025; 85610; 86140; 87040; 87077; 87086; 87088; 87186; 87205; 93005; 93970; 96374; 97116; 97163; 97530; 99285; G0378; J1650; J1940